=== PATIENT | female | born 1965 | race African-American/Black ===

== ENCOUNTER 2018-04-24 09:41 | Emergency (ER) | payer MEDICARE, MEDICAID ==
[2018-04-24 09:49] VITALS: BP 162/97
[2018-04-24] MEDS ORDERED: LIDOCAINE 2% VISCOUS SOLN 20 ML UDCUP PO ONE (09:49)
--- NOTE | 2018-04-24 09:57 | ER Document Report ---
HPI - HPI Pain Level: 4 Notes: Patient is a 52-year-old female who presents to the ED complaining of left upper dental pain #151mo. He has not noticed any obvious abscess or purulent discharge. Patient states that she is still able to eat and drink, but does have a decreased p.o. intake due to the pain. She has tried some over-the- counter meds with minimal relief. No other concerns or complaints. Patient states that she was told by a dentist a month ago that there may be a cavity that is deep that needs to be taken care of which is most likely causing her pain. Antibiotics did help in the past. Denies any headache, fever, head injury, neck pain, hoarseness, drooling, URI, sore throat, chest pain, palpitations, syncope, cough, shortness of breath, wheeze, dyspnea, abdominal pain, nausea/vomiting/diarrhea, urinary retention, dysuria, hematuria, or rash. - ROS Systems Reviewed and Negative: Yes All other systems reviewed and negative - REPRODUCTIVE Reproductive: DENIES: : Past Medical History - Social History Smoking Status: Current Every Day Smoker Family History: Reviewed & Not Pertinent - Past Medical History Cardiac Medical History: Reports: Hx Hypertension Pulmonary Medical History: Reports: Hx Asthma Endocrine Medical History: Reports: Hx Diabetes Mellitus Type 2 Vertical Provider Document - CONSTITUTIONAL Agree With Documented VS: Yes Notes: PHYSICAL EXAMINATION: GENERAL: Well-appearing, well-nourished and in no acute distress. HEAD: Atraumatic, normocephalic. EYES: Pupils equal round and reactive to light, extraocular movements intact, sclera anicteric, conjunctiva are normal. ENT: EAC clear b/l. TM's intact b/l without erythema, fluid, or perforation. Nares patent and without discharge. oropharynx clear without exudates. No tonsilar hypertrophy or erythema. Moist mucous membranes. No sinus tenderness. Uvula midline. No palatine shift. No tongue protrusion. No respiratory compromise. Mouth: Poor dentition. + mild decay and mild gingivitis. No obvious abscess or discharge noted. No facial swelling. + tenderness to tooth #15. NECK: Normal range of motion, supple without lymphadenopathy. No rigidity/ meningismus. LUNGS: Breath sounds clear to auscultation bilaterally and equal. No wheezes rales or rhonchi. HEART: Regular rate and rhythm without murmurs, rubs, gallops. NEUROLOGICAL: Cranial nerves grossly intact. Normal speech, normal gait. PSYCH: Normal mood, normal affect. SKIN: Warm, Dry, normal turgor, no rashes or lesions noted. - INFECTION CONTROL TRAVEL OUTSIDE OF THE [place] IN LAST 30 DAYS: No Course - Re-evaluation Re-evalutation: 04/24/18 09:55 Patient is an afebrile, well-hydrated, 52-year-old female who presents to the ED with dental pain, suspect nerve root etiology versus infection. Vitals are acceptable. PE is otherwise unremarkable. No I&D, labs, or imaging warranted at this time based on H&P. Viscous lidocaine dispensed today. I will send her home with a prescription for penicillin. Low suspicion for any meningitis, sepsis, peritonsillar/pharyngeal abscess, respiratory compromise, Rohan's, temporal arteritis, or other emergent systemic condition at this time. Patient is aware this condition can change from initial presentation and she needs to monitor symptoms closely. Conservative measures otherwise for symptoms. Call to schedule an appointment with a dentist for further evaluation and management. Recheck with your PCM this week as well. Return to the ED with any worsening/concerning symptoms otherwise as reviewed in discharge. Patient is in agreement. - Vital Signs Vital signs: Temp Pulse Resp BP Pulse Ox 97.7 F 107 H 18 162/97 H 98 04/24/18 09:48 04/24/18 09:48 04/24/18 09:48 04/24/18 09:48 04/24/18 09:48 Discharge - Discharge Clinical Impression: Pain, dental Condition: Stable Disposition: HOME, SELF-CARE Instructions: Penicillin V K ([facility]), Toothache ([facility]) Additional Instructions: Garrison and floss twice daily Maintain fluid intake Take antibiotics as directed Mouthwash, salt water gargles, peroxide rinse as needed Tylenol/ibuprofen as needed Recheck with PCM this week Call today/tomorrow and schedule an appointment with your dentist for further evaluation Return to the ED with any worsening symptoms and/or development of fever, headache, facial swelling, swelling of lips/tongue/throat, trouble swallowing, drooling, hoarseness, neck pain/stiffness, chest pain, palpitations, syncope, shortness of breath, trouble breathing, abdominal pain, n/v/d, numbness/tingling , or other worsening symptoms that are concerning to you. Prescriptions: Penicillin V Potassium [Penicillin Vk 250 mg Tablet] 500 mg PO BID #40 tablet Forms: Elevated Blood Pressure, Smoking Cessation Education Referrals: [facility] [Provider Group] - Follow up as needed
== END 2018-04-24 10:05 | disposition home or self-care (01) ==
LOC: ER 09:41
DX: K02.9 Dental caries, unspecified (principal); K05.10 Chronic gingivitis, plaque induced; K08.89 Other specified disorders of teeth and supporting structures; F17.200 Nicotine dependence, unspecified, uncomplicated; E11.9 Type 2 diabetes mellitus without complications; I10 Essential (primary) hypertension; J45.909 Unspecified asthma, uncomplicated
CPT/HCPCS: 99282; J3490

== ENCOUNTER 2018-07-09 23:58 | Emergency (ER) | payer MEDICARE, MEDICAID ==
[2018-07-10 00:15] VITALS: BP 111/70
== END 2018-07-10 00:58 | disposition left against medical advice (07) ==
LOC: ER 23:58
DX: Z53.21 Procedure and treatment not carried out due to patient leaving prior to being seen by health care provider (principal)

== ENCOUNTER 2020-04-29 02:15 | Emergency (ER) | payer MEDICARE, MEDICAID ==
--- NOTE | 2020-04-29 02:52 | ER Document Report ---
ED Respiratory Problem - General Chief Complaint: Shortness Of Breath Stated Complaint: DIFFICULTY BREATHING Time Seen by Provider: 04/29/20 02:41 Mode of Arrival: Medic Information source: Patient, Emergency Med Personnel Notes: 54-year-old black female arrives by EMS with chief complaint of acute on chronic RAD. Patient reports she is had a history of sarcoidosis that was diagnosed more than 9 years ago after a biopsy through her anterior chest. Patient points to her manubrial scar. Patient reports tonight she was having some asthma attack and was given 3 breathing treatments and some Solu-Medrol to her left antecubital IV. Patient now wants to go home. Sean BALLESTEROS advises she must be seen by physician and I went in to see her at 0 240. Patient is adamant about leaving. She reports last time EMS came to her house 1 month ago she was given a breathing treatment which helped her considerably. TRAVEL OUTSIDE OF THE [place] IN LAST 30 DAYS: No - HPI Patient complains to provider of: Asthma, COPD Onset: Just prior to arrival Duration: Better - Related Data Allergies/Adverse Reactions: codeine Allergy (Verified 04/24/18 09:42) lisinopril Allergy (Verified 04/29/20 02:32) shellfish derived Allergy (Verified 04/29/20 02:32) Past Medical History - General Information source: Patient, Emergency Med Personnel - Social History Smoking Status: Current Every Day Smoker Cigarette use (# per day): Yes Chew tobacco use (# tins/day): No Smoking Education Provided: Yes Frequency of alcohol use: None Drug Abuse: None Lives with: Family Family History: Reviewed & Not Pertinent Patient has suicidal ideation: No Patient has homicidal ideation: No - Past Medical History Cardiac Medical History: Reports: Hx Hypertension Pulmonary Medical History: Reports: Hx Asthma Endocrine Medical History: Reports: Hx Diabetes Mellitus Type 2 Renal/ Medical History: Denies: Hx Peritoneal Dialysis Review of Systems - Review of Systems Constitutional: No symptoms reported EENT: No symptoms reported Cardiovascular: No symptoms reported Respiratory: See HPI, Short of breath, Wheezing Gastrointestinal: No symptoms reported Genitourinary: No symptoms reported Female Genitourinary: No symptoms reported Musculoskeletal: No symptoms reported Skin: No symptoms reported Hematologic/Lymphatic: No symptoms reported Neurological/Psychological: No symptoms reported Physical Exam - Vital signs Interpretation: Normal - General General appearance: Appears well, Alert - HEENT Head: Normocephalic, Atraumatic Eyes: Normal Pupils: PERRL - Respiratory Respiratory status: No respiratory distress Chest status: Nontender Breath sounds: Wheezing - Occasional wheezing otherwise clear to auscultation Chest palpation: Normal - Cardiovascular Rhythm: Regular Heart sounds: Normal auscultation Murmur: No - Abdominal Inspection: Normal Distension: No distension Bowel sounds: Normal Tenderness: Nontender Organomegaly: No organomegaly - Rectal Hemorrhoids: Other - deferred - Genitourinary Bimanuel exam: Other - deferred - Back Back: Normal, Nontender - Extremities General upper extremity: Normal inspection, Nontender, Normal color, Normal ROM, Normal temperature General lower extremity: Normal inspection, Nontender, Normal color, Normal ROM, Normal temperature, Normal weight bearing. No: Medhat's sign - Neurological Neuro grossly intact: Yes Cognition: Normal Orientation: AAOx4 Zeeshan Coma Scale Eye Opening: Spontaneous [place] Coma Scale Verbal: Oriented Zeeshan Coma Scale Motor: Obeys Commands Iber[place] Coma Scale Total: 15 Speech: Normal Motor strength normal: LUE, RUE, LLE, RLE Sensory: Normal - Psychological Associated symptoms: Normal affect, Normal mood - Skin Skin Temperature: Warm Skin Moisture: Dry Skin Color: Normal Discharge - Discharge Clinical Impression: Asthmatic bronchitis Qualifiers: Asthma severity: mild Asthma persistence: intermittent Asthma complication type: with acute exacerbation Qualified Code(s): J45.21 - Mild intermittent asthma with (acute) exacerbation Condition: Stable Disposition: HOME, SELF-CARE Additional Instructions: Follow-up with personal doctor this week and return to ER if symptoms persist or worsen. Take medicines as directed. We will use a oral Decadron rather than a ventilated Decadron this week. We will also treat with Z-Art. Also with Slow- Mag. Prescriptions: Dexamethasone [Decadron 4 Mg Tablet] 4 mg PO DAILY #5 tablet Magnesium Chloride [Slow-Mag] 71.5 mg PO DAILY #7 tablet. Azithromycin [Zithromax 250 mg Tablet] 250 mg PO ASDIR PRN #6 tablet PRN Reason:
[2020-04-29 03:06] VITALS: BP 116/76
== END 2020-04-29 03:00 | disposition home or self-care (01) ==
LOC: ER 02:15
DX: J45.21 Mild intermittent asthma with (acute) exacerbation (principal); D86.9 Sarcoidosis, unspecified; F17.210 Nicotine dependence, cigarettes, uncomplicated; E11.9 Type 2 diabetes mellitus without complications; I10 Essential (primary) hypertension; Z88.6 Allergy status to analgesic agent; Z88.5 Allergy status to narcotic agent; Z88.8 Allergy status to other drugs, medicaments and biological substances; Z91.013 Allergy to seafood
CPT/HCPCS: 99283

== ENCOUNTER 2020-05-16 12:05 | Emergency (ER) | payer MEDICARE, MEDICAID ==
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
--- NOTE | 2020-05-16 13:32 | RADIOLOGY REPORT (SQ) ---
EXAM DESCRIPTION: FOOT LEFT COMPLETE IMAGES COMPLETED DATE/TIME: 05/16/2020 1:09 pm REASON FOR STUDY: trauma COMPARISON: None. NUMBER OF VIEWS: Three views. TECHNIQUE: AP, lateral and oblique radiographic images acquired of the left foot. LIMITATIONS: None. FINDINGS: MINERALIZATION: Normal. BONES: Transverse nondisplaced fractures of the seconds, 3rd, 4th metatarsals proximally. JOINTS: No effusions. SOFT TISSUES: No soft tissue swelling. No foreign body. OTHER: No other significant finding. IMPRESSION: Nondisplaced fractures of the proximal seconds 3rd and 4th metatarsals. TECHNICAL DOCUMENTATION: JOB ID: [id number] 2010 [employer]- All Rights Reserved Reading location - IP/workstation name: [email or web address]
--- NOTE | 2020-05-16 14:11 | RADIOLOGY REPORT (SQ) ---
EXAM DESCRIPTION: CT ORBIT/SELLA WITHOUT IMAGES COMPLETED DATE/TIME: 05/16/2020 1:58 pm REASON FOR STUDY: left eye inj COMPARISON: None. TECHNIQUE: Noncontrasted images through the orbits windowed for bone and soft tissue. Additional co sukhwinder and sagittal reconstructed images reviewed. All images stored on PACS. All CT scanners at this facility use dose modulation, iterative reconstruction, and/or weight based d osing when appropriate to reduce radiation dose to as low as reasonably achievable (ALARA). [facility]: Dose Right [facility]: CareDose [facility]: Dose Right [facility]: Teradose 4D [facility]: [employer] RADIATION DOSE: CT Rad equipment meets quality standard of care and radiation dose reduction techniq ues were employed. CTDIvol: 30.4 mGy. DLP: 570 mGy-cm. mGy. LIMITATIONS: None. FINDINGS: FACIAL BONES: No fracture or bone lesion. ORBITS: Intact. No fracture. Symmetric intact globes and retroorbital soft tissues. Soft tissue sw elling over the left frontal bone and eliza PARANASAL SINUSES: Clear. No significant mucosal thickening, mass or fluid. No nasal polyps. Maxilla ry sinus outlets are patent. SOFT TISSUES: No mass or edema. INFERIOR BRAIN: Limited view. No acute findings. OTHER: No other significant finding. IMPRESSION: Soft tissue swelling of the left orbit. No fracture. TECHNICAL DOCUMENTATION: JOB ID: [id number] Quality ID # [id number]: Final reports with documentation of one or more dose reduction techniques (e.g., Au tomated exposure control, adjustment of the mA and/or kV according to patient size, use of iterative reconstruction technique) 2010 [employer]- All Rights Reserved Reading location - IP/workstation name: [email or web address]
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
[2020-05-16 17:14] VITALS: BP 125/70
== END 2020-05-16 17:17 | disposition home or self-care (01) ==
LOC: ER 12:05
PROC: 2W3RX1Z Immobilization of Left Lower Leg using Splint (ICD-10-PCS; principal; 2020-05-16)
DX: S92.302A Fracture of unspecified metatarsal bone(s), left foot, initial encounter for closed fracture (principal); S00.83XA Contusion of other part of head, initial encounter; M25.572 Pain in left ankle and joints of left foot; H57.12 Ocular pain, left eye; Y04.0XXA Assault by unarmed brawl or fight, initial encounter; Z88.8 Allergy status to other drugs, medicaments and biological substances; F17.200 Nicotine dependence, unspecified, uncomplicated; J45.909 Unspecified asthma, uncomplicated; E11.9 Type 2 diabetes mellitus without complications
CPT/HCPCS: 70480; 99284

== ENCOUNTER 2020-07-10 12:16 | Emergency (ER) | payer MEDICARE, MEDICAID ==
--- NOTE | 2020-07-10 13:23 | ER Document Report ---
ED Medical Screen (RME) - General Chief Complaint: Leg Swelling Stated Complaint: LEFT LEG PAIN Time Seen by Provider: 07/10/20 13:18 Primary Care Provider: PAKO ORDAZ PA-C [Primary Care Provider] - Follow up as needed Notes: Patient presents complaining of lower extremity pain and swelling. Patient states that she has a foot fracture and had been in a cast for 3 weeks and has been in a walking boot for 4 weeks. Patient denies any chest pain or shortness of breath. Patient denies any fever. Patient does have a history of asthma and sarcoidosis. I have greeted and performed a rapid initial assessment of this patient. A comprehensive ED assessment and evaluation of the patient, analysis of test results and completion of the medical decision making process will be conducted by additional ED providers. TRAVEL OUTSIDE OF THE [place] IN LAST 30 DAYS: No - Related Data Allergies/Adverse Reactions: codeine Allergy (Verified 04/24/18 09:42) lisinopril Allergy (Verified 04/29/20 02:32) shellfish derived Allergy (Verified 04/29/20 02:32) Past Medical History - Past Medical History Cardiac Medical History: Reports: Hx Hypertension Pulmonary Medical History: Reports: Hx Asthma Endocrine Medical History: Reports: Hx Diabetes Mellitus Type 2 Renal/ Medical History: Denies: Hx Peritoneal Dialysis Physical Exam - Vital signs Vitals: Temp Pulse Resp BP Pulse Ox 98.2 F 88 20 177/89 H 100 07/10/20 12:23 07/10/20 12:23 07/10/20 12:23 07/10/20 12:23 07/10/20 12:23 - General General appearance: Appears well, Alert Notes: Walking boot to left lower extremity, patient wearing pants, unable to examine leg in triage Course - Vital Signs Vital signs: Temp Pulse Resp BP Pulse Ox 98.2 F 88 20 177/89 H 100 07/10/20 12:23 07/10/20 12:23 07/10/20 12:23 07/10/20 12:23 07/10/20 12:23 Doctor's Discharge - Discharge Referrals: PAKO ORDAZ PA-C [Primary Care Provider] - Follow up as needed
--- NOTE | 2020-07-10 16:51 | RADIOLOGY REPORT (SQ) ---
EXAM DESCRIPTION: VENOUS UNILATERAL LOWER IMAGES COMPLETED DATE/TIME: 07/10/2020 4:42 pm REASON FOR STUDY: LLE swelling COMPARISON: None. TECHNIQUE: Dynamic and static ruiz scale and color images acquired of the left leg venous system. Se lected spectral images acquired with additional compression and augmentation maneuvers. The contralat eral common femoral vein and saphenofemoral junction were also imaged. Images stored on PACS. LIMITATIONS: None. FINDINGS: COMMON FEMORAL: Normal phasicity, compression and augmentation. No visualized echogenic ma terial on ruiz scale. No defects on color images. FEMORAL: Normal compression and augmentation. No visualized echogenic material on ruiz scale. No defe cts on color images. POPLITEAL: Normal compression, augmentation. No visualized echogenic material on ruiz scale. No defec ts on color images. CALF VESSELS: Peroneal and posterior tibial veins are normal. There is clot in the upper calf in bot h gastrocnemius veins. GSV and SSV: Normal compression, augmentation. No visualized echogenic material on ruiz scale. No def ects on color images. ANY DEEP VENOUS INSUFFICIENCY: Not evaluated. ANY EVIDENCE OF POPLITEAL CYST: No. OTHER: No other significant finding. CONTRALATERAL COMMON FEMORAL VEIN AND SAPHENOFEMORAL JUNCTION: Normal phasicity, compression and augmentation. No visualized echogenic material on ruiz scale. No de fects on color images. IMPRESSION: Positive for DVT, gastrocnemius clot in the upper left calf. TECHNICAL DOCUMENTATION: JOB ID: [id number] 2010 [employer]- All Rights Reserved Reading location - IP/workstation name: [email or web address]
--- NOTE | 2020-07-10 17:21 | ER Document Report ---
ED General - General Chief Complaint: Leg Swelling Stated Complaint: LEFT LEG PAIN Time Seen by Provider: 07/10/20 13:18 Primary Care Provider: PAKO ORDAZ PA-C [Primary Care Provider] - Follow up as needed TRAVEL OUTSIDE OF THE [place] IN LAST 30 DAYS: No - HPI Notes: Chief Complaint: Left lower leg swelling and pain Historian: History obtained from patient HPI: This is a 54-year-old female presents to the ER complaining of left lower leg swelling and pain for the past few days. Patient had fractured 2 metatarsals in her left foot about 7 weeks ago. She was in a hard cast for about a month and has been in a walking boot for the past 3 weeks. Patient still complains of pain to her foot and says she is about 50 to 75% weightbearing. She denies any new injury or trauma. She denies chest pain shortness of breath or hemoptysis. No history of DVT or PE. ROS: Constitutional: no fevers. HEENT: no FIERRO, sore throat, or vision changes. CV: no chest pain or palpitations. Resp: no cough or SOB. GI: no abdominal pain, or n/v/d. : no dysuria, hematuria, or incont. MSK: Left lower leg swelling and pain. Known left foot fracture Skin: no rashes or itching. Neuro: no seizures, weakness, numbness, or confusion. Hematological: no ecchymosis or easy bleeding. Endocrine: no polyuria/polydipsia, no heat/cold intolerance. Psych: no SI/HI, AH/VH or memory loss. PMHx: Reviewed and agree as charted by RN. PSHx: Reviewed and agree as charted by RN. SOCHx: Reviewed and agree as charted by RN. FHX: No significant familial comorbid conditions directly related to patient complaint Current Medications: Reviewed and agree with the patient medications as charted by the RN. Allergies: Reviewed and agree with the listed allergies as charted by the RN Physical Exam: Vitals: Reviewed in chart as documented by RN. General: Alert and in NAD. Head: Normocephalic; atraumatic Eyes: PERRLA, Conjunctivae clear sclerae non-icteric bilat ENT: no soft palate swelling or uvular deviation Neck: trachea midline, no unilateral swelling/tenderness/lymphadenopathy CV: RRR, no M/R/G; symmetric distal pulses Resp: respirations even and unlabored, CTA bilat. GI: abd soft and nondistended. NTTP. normal BS. no masses/HSM. no CVAT bilat MSK: Left lower extremitymild swelling to the left lower leg, left calf is about 2 cm larger than the right. No erythema, induration to calf. Unable to check Homans' sign due to patient's foot fracture. Compartments are soft in the lower leg, cap refill less than 3 seconds, warm to touch. Pedal pulses are 2+ to DP and PT. Full range of motion of hip, knee, ankle. Sensory intact distally. Skin: warm, moist, good turgor. no rash/lesions Neuro: Alert and oriented X 4. following CN 2-12 intact. no unilateral weakness/numbness Psych: No SI/HI or AH/VH. Medical Decision-making/Differential Diagnosis: Consider various etiologies including but not limited to DVT, venous stasis, PAD, PVD, CHF, compartment syndrome, cellulitis, skin/soft tissue structure injury, MSK injury, strain/sprain, fracture, dislocation, bursitis, tendonitis, contusion, ect Plan-venous Doppler ultrasound on the left leg ordered in triage. optometric technologist reports that she noted DVT in the gastrocnemius. official radiology read confirms gastrocnemius DVT. I added CBC and BMP to be drawn to check patient's platelets and kidney function as I will likely be starting blood thinners. Patient given 1 month starter coupon for Eliquis be taking 2 pills a day for 1 week and then 1 pill a day for the next 3 weeks. She is to follow-up with her PCP prior to completion of this to get further Eliquis prescriptions. Strict return factors were discussed. She will follow up with her PCP patient is agreeable to this plan. At time of discharge patient is neurovascularly intact no concerns for ischemia, compartment syndrome, phlegmasia cerulea Dolen's. This course of action was discussed with the patient and/or family. They were amenable to this, verbalized understanding, and were without further questions. - Related Data Allergies/Adverse Reactions: codeine Allergy (Verified 04/24/18 09:42) lisinopril Allergy (Verified 04/29/20 02:32) shellfish derived Allergy (Verified 04/29/20 02:32) Past Medical History - Social History Smoking Status: Unknown if Ever Smoked Family History: Reviewed & Not Pertinent - Past Medical History Cardiac Medical History: Reports: Hx Hypertension Pulmonary Medical History: Reports: Hx Asthma Endocrine Medical History: Reports: Hx Diabetes Mellitus Type 2 Renal/ Medical History: Denies: Hx Peritoneal Dialysis Physical Exam - Vital signs Vitals: Temp Pulse Resp BP Pulse Ox 98.2 F 88 20 177/89 H 100 07/10/20 12:23 07/10/20 12:23 07/10/20 12:23 07/10/20 12:23 07/10/20 12:23 Course - Vital Signs Vital signs: Temp Pulse Resp BP Pulse Ox 98.0 F 73 16 140/80 H 94 07/10/20 17:40 07/10/20 17:40 07/10/20 17:40 07/10/20 17:40 07/10/20 17:40 - Laboratory Results Result Diagrams: 07/10/20 16:57 07/10/20 16:57 Laboratory Results Interpreted: 07/10/20 16:57 Chloride 110 H Creatinine 0.51 L AST 37 H Critical Laboratory Results Reviewed: No Critical Results - Radiology Results Critical Radiology Results Reviewed: Yes Attending or Supervising Physician who Reviewed Radiology: GAIL KINCAID - aware of positive DVT Discharge - Discharge Clinical Impression: Deep vein thrombosis of left lower limb Qualifiers: Affected thrombotic vein of extremity: unspecified lower extremity distal vein Chronicity: acute Qualified Code(s): I82.4Z2 - Acute embolism and thrombosis of unspecified deep veins of left distal lower extremity Condition: Stable Disposition: HOME, SELF-CARE Instructions: DVT Outpatient Treatment ([facility]) Additional Instructions: take medications as prescribed. do not miss doses of your eliquis. follow up with your primary doctor or call and schedule an appointment with primary care doctor listed below to be seen in about 3 week to get refills of eliquis and to be rechecked. likely be on eliquis for 3 months. return to the ER if your condition worsens- especially if you have chest pain, shortness of breath, pass out, or cough up blood Prescriptions: Apixaban [Eliquis] 5 mg PO ASDIR 30 Days #74 [email or web address] Referrals: PAKO ORDAZ PA-C [Primary Care Provider] - Follow up as needed
[2020-07-10 17:29] LABS: ABSOLUTE LYMPHOCYTES (AUTO) 1.8 10^3/uL (0.5-4.7); ABSOLUTE MONOCYTES (AUTO) 0.6 10^3/uL (0.1-1.4); ABSOLUTE NEUT (AUTO) 2.3 10^3/uL (1.7-8.2); BASOPHILS % (AUTO) 0.5 % (0-2); EOSINOPHILS % (AUTO) 0.4 % (0-6); HEMATOCRIT 36.9 % (36.0-47.0); HEMOGLOBIN 12.8 g/dL (12.0-15.5); LYMPHOCYTES % (AUTO) 37.2 % (13-45); MEAN CORPUSCULAR HGB CONC 34.6 g/dL (32.0-36.0); MEAN CORPUSCULAR VOLUME 95 fl (80-97); MONOCYTES % (AUTO) 12.6 % (3-13); PLATELET COUNT 205 10^3/uL (150-450); RED BLOOD COUNT 3.88 10^6/uL (3.72-5.28); RED CELL DISTRIBUTION WIDTH 13.7 % (11.5-14.0); SEGMENTED NEUTROPHILS % (AUTO) 49.3 % (42-78); TOTAL CELLS COUNTED % (AUTO) 100 %; WHITE BLOOD COUNT 4.8 10^3/uL (4.0-10.5)
[2020-07-10 17:52] LABS: ALBUMIN 4.4 g/dL (3.5-5.0); ALKALINE PHOSPHATASE 109 U/L (38-126); ANION GAP 5 (5-19); ASPARTATE AMINO TRANSFERASE 37 U/L (14-36); BILIRUBIN,DIRECT 0.2 mg/dL (0.0-0.4); BILIRUBIN,TOTAL 0.5 mg/dL (0.2-1.3); BLOOD UREA NITROGEN 15 mg/dL (7-20); CALCIUM 9.2 mg/dL (8.4-10.2); CARBON DIOXIDE 29 mmol/L (22-30); CHLORIDE 110 mmol/L (98-107); GLUCOSE 108 mg/dL (75-110); POTASSIUM 3.7 mmol/L (3.6-5.0); TOTAL PROTEIN 7.5 g/dL (6.3-8.2)
[2020-07-10] MEDS ORDERED: APIXABAN 5 MG TABLET PO ONE (20:14)
[2020-07-10 20:56] VITALS: BP 138/79
== END 2020-07-10 22:50 | disposition home or self-care (01) ==
LOC: ER 12:16
DX: I82.4Z2 Acute embolism and thrombosis of unspecified deep veins of left distal lower extremity (principal); M79.605 Pain in left leg; E11.9 Type 2 diabetes mellitus without complications; I10 Essential (primary) hypertension; Z88.6 Allergy status to analgesic agent
CPT/HCPCS: 99284; 36415; 85025; 80053; 93971; A9270